=== PATIENT | male | born 1950 | race Two or more races ===

== ENCOUNTER 2021-01-21 11:30 | Inpatient (IN) | payer OTHER, MEDICAID ==
[~2021-01-21] VITALS: Ht 165.1 cm; Wt 56.9 kg
[2021-01-21 13:29] LABS: Basophils # (auto) 0 10 ^3/uL (0-0.2); Eosinophils # (auto) 0 10 ^3/uL (0-0.8); Hemoglobin 7.9 g/dL (13.5-17.5); Lymphocytes # (auto) 0.3 10 ^3/uL (0.4-5.4); Monocytes # (auto) 0.1 10 ^3/uL (0-1.3); Neutrophils % (auto) 90.1 % (37.0-80.0); Red Cell Distribution Width 17.3 % (11.8-14.3); White Blood Cell 4.8 10^3/uL (4.4-10.8)
[2021-01-21 13:33] LABS: Basophils % (auto) 0.3 % (0.0-2.0); Eosinophils % (auto) 0.1 % (0.0-7.0); Lymphocytes % (auto) 6.9 % (10.0-50.0); Mean Corpuscular Hemoglobin 29.1 pg (28.0-32.0); Mean Corpuscular Hgb Conc. 32.8 g/dL (32.0-36.0); Mean Corpuscular Volume 88.7 fL (80.0-100.0); Monocytes % (auto) 2.6 % (0.0-12.0); Neutrophils # (auto) 4.3 10 ^3/uL (1.6-8.6); Red Blood Cells 2.71 10^6/uL (4.5-5.90)
[2021-01-21 13:45] LABS: INR 1.07 (0.9-1.15)
[2021-01-21] MEDS ORDERED: SODIUM CHLORIDE 0.9% 1,000 ML IVB ONE (13:45)
[2021-01-21] MEDS ORDERED: MORPHINE SULFATE INJECTION 2 MG/ML SYRG IV ONE (13:45)
[2021-01-21] MEDS ORDERED: ONDANSETRON HCL 4 MG/2 ML VIAL IV ONE (13:45)
[2021-01-21] MEDS ORDERED: cefTRIAXone 1GM/50ML D5W 50 ML IV ONE (13:45)
[2021-01-21] MEDS ORDERED: VANCOMYCIN PER PHARMACY 0 MG IV SCH (13:45)
[2021-01-21 13:50] LABS: Albumin 1.8 g/dL (3.4-5.0); Calcium 8.4 mg/dL (8.5-10.1); Potassium 4.1 mmol/L (3.5-5.1)
[2021-01-21 13:54] LABS: BUN/Creatinine Ratio 19.7; Bilirubin, Total 0.3 mg/dL (0.2-1.0); Total Protein 6.3 g/dL (6.4-8.2)
[2021-01-21 14:53] LABS: Lactic Acid w/Reflex 2.4 mmol/L (0.4-2.0)
[2021-01-21 15:13] LABS: Magnesium 2.4 mg/dL (1.6-2.6)
[2021-01-21] MEDS: VANCOMYCIN 1GM/250ML 250 ML IV SCH (15:39)
[2021-01-21] MEDS ORDERED: NITROGLYCERIN 0.4 MG SL TAB SL PRN (16:45)
[2021-01-21] MEDS ORDERED: ONDANSETRON HCL 4 MG/2 ML VIAL IV PRN (16:45)
[2021-01-21] MEDS ORDERED: MORPHINE SULFATE INJECTION 2 MG/ML SYRG IV PRN ×2 (16:45)
[2021-01-21] MEDS: D5W/SOD CHL 0.45% 1,000 ML IV SCH (17:52)
[2021-01-21 22:05] VITALS: BP 103/62
[2021-01-22] VITALS (8 sets, daily range): BP systolic 91–123; BP diastolic 54–76
[2021-01-22 05:37] LABS: Basophils # (auto) 0 10 ^3/uL (0-0.2); Basophils % (auto) 0.5 % (0.0-2.0); Eosinophils # (auto) 0 10 ^3/uL (0-0.8); Hematocrit 19.7 % (41.0-53.0); Lymphocytes # (auto) 0.4 10 ^3/uL (0.4-5.4); Mean Corpuscular Hemoglobin 29.3 pg (28.0-32.0); Mean Corpuscular Hgb Conc. 33.1 g/dL (32.0-36.0); Monocytes # (auto) 0.2 10 ^3/uL (0-1.3); Neutrophils # (auto) 2.6 10 ^3/uL (1.6-8.6); White Blood Cell 3.3 10^3/uL (4.4-10.8)
[2021-01-22 05:43] LABS: Eosinophils % (auto) 0.9 % (0.0-7.0); Lymphocytes % (auto) 12.4 % (10.0-50.0); Mean Corpuscular Volume 88.4 fL (80.0-100.0); Monocytes % (auto) 5.8 % (0.0-12.0); Neutrophils % (auto) 80.4 % (37.0-80.0); Nucleated Red Blood Cells % 0.1 %; Red Blood Cells 2.23 10^6/uL (4.5-5.90); Red Cell Distribution Width 17.2 % (11.8-14.3)
[2021-01-22 05:55] LABS: Hemoglobin 6.5 g/dL (13.5-17.5)
[2021-01-22] MEDS: D5W/SOD CHL 0.45% 1,000 ML IV SCH ×2 (05:59→20:29)
[2021-01-22 06:04] LABS: BUN/Creatinine Ratio 21.1; Calcium 7.5 mg/dL (8.5-10.1)
[2021-01-22] MEDS ORDERED: FERR-20 PO (06:15)
[2021-01-22] MEDS ORDERED: EVER5TAB PO (06:15)
[2021-01-22] MEDS: VANCOMYCIN 1GM/250ML 250 ML IV SCH (09:14)
[2021-01-22] MEDS: PANTOPRAZOLE 40 MG/10 ML VIAL INJ IV SCH (09:15)
[2021-01-22] MEDS ORDERED: MEROPENEM 1GM IVPB 100 ML IV SCH (11:00)
[2021-01-22 13:17] LABS: % Iron Saturation 5.9 % (20-55)
[2021-01-22] MEDS ORDERED: IRON SUCROSE COMPLEX 200 MG in SODIUM CHL 0.9% 100 ML IV SCH (20:15)
[2021-01-22] MEDS: SODIUM FERR GLUC 62.5MG/5ML 125 MG in SODIUM CHL 0.9% 100 ML IV SCH (23:25)
[2021-01-23] VITALS (17 sets, daily range): BP systolic 95–113; BP diastolic 58–70
[2021-01-23] MEDS: MEROPENEM 1GM IVPB 100 ML IV SCH ×3 (01:02→16:22)
[2021-01-23] MEDS: VANCOMYCIN 1GM/250ML 250 ML IV SCH (03:22)
[2021-01-23 05:16] LABS: Basophils # (auto) 0 10 ^3/uL (0-0.2); Eosinophils # (auto) 0 10 ^3/uL (0-0.8); Lymphocytes # (auto) 0.5 10 ^3/uL (0.4-5.4); Monocytes # (auto) 0.1 10 ^3/uL (0-1.3); Neutrophils # (auto) 2.1 10 ^3/uL (1.6-8.6); White Blood Cell 2.8 10^3/uL (4.4-10.8)
[2021-01-23 05:22] LABS: Basophils % (auto) 1.1 % (0.0-2.0); Eosinophils % (auto) 1.4 % (0.0-7.0); Hematocrit 24.3 % (41.0-53.0); Hemoglobin 8.3 g/dL (13.5-17.5); Lymphocytes % (auto) 18.8 % (10.0-50.0); Mean Corpuscular Hemoglobin 29.9 pg (28.0-32.0); Mean Corpuscular Hgb Conc. 34.2 g/dL (32.0-36.0); Mean Corpuscular Volume 87.4 fL (80.0-100.0); Monocytes % (auto) 5.3 % (0.0-12.0); Neutrophils % (auto) 73.4 % (37.0-80.0); Red Blood Cells 2.78 10^6/uL (4.5-5.90); Red Cell Distribution Width 16.2 % (11.8-14.3)
[2021-01-23 05:38] LABS: Albumin 1.4 g/dL (3.4-5.0); Calcium 7.5 mg/dL (8.5-10.1); Potassium 3.7 mmol/L (3.5-5.1)
[2021-01-23 05:43] LABS: BUN/Creatinine Ratio 17.4; Bilirubin, Total 0.5 mg/dL (0.2-1.0); Total Protein 5.1 g/dL (6.4-8.2)
[2021-01-23 10:24] LABS: Urine Amorphous Crystal FEW /hpf (None Seen); Urine Bacteria FEW /hpf (None Seen); Urine Blood Negative /uL (Negative); Urine Mucus FEW (None Seen); Urine Specific Gravity 1.012 (1.001-1.035); Urine WBC 1 /hpf (0 - 3)
[2021-01-23] MEDS ORDERED: MIDAZOLAM HCL 2MG/2ML 2ml VIAL (1mg/ml) ONE (10:31)
[2021-01-23] MEDS ORDERED: fentaNYL CITRATE 100 MCG/2 ML VL ONE (10:31)
[2021-01-23] MEDS ORDERED: LIDOCAINE 2%HCL (LOCAL ANESTH.) INJ 20ML MDV ONE (11:02)
[2021-01-23] MEDS ORDERED: IRON SUCROSE COMPLEX 200 MG in SODIUM CHL 0.9% 100 ML IV SCH (12:00)
[2021-01-23] MEDS: PANTOPRAZOLE 40 MG/10 ML VIAL INJ IV SCH (13:13)
[2021-01-23] MEDS: SODIUM FERR GLUC 62.5MG/5ML 125 MG in SODIUM CHL 0.9% 100 ML IV SCH (13:13)
[2021-01-24] MEDS: MEROPENEM 1GM IVPB 100 ML IV SCH ×4 (00:14→23:38)
[2021-01-24 05:28] VITALS: BP 100/61
[2021-01-24 06:01] LABS: Basophils # (auto) 0 10 ^3/uL (0-0.2); Eosinophils # (auto) 0 10 ^3/uL (0-0.8); Hemoglobin 8.3 g/dL (13.5-17.5); Lymphocytes # (auto) 0.5 10 ^3/uL (0.4-5.4); Monocytes # (auto) 0.2 10 ^3/uL (0-1.3); Neutrophils # (auto) 2.3 10 ^3/uL (1.6-8.6); White Blood Cell 3.1 10^3/uL (4.4-10.8)
[2021-01-24 06:04] LABS: Basophils % (auto) 0.9 % (0.0-2.0); Eosinophils % (auto) 1.4 % (0.0-7.0); Hematocrit 24.7 % (41.0-53.0); Lymphocytes % (auto) 17.2 % (10.0-50.0); Mean Corpuscular Hemoglobin 29.2 pg (28.0-32.0); Mean Corpuscular Hgb Conc. 33.5 g/dL (32.0-36.0); Mean Corpuscular Volume 86.9 fL (80.0-100.0); Monocytes % (auto) 6.7 % (0.0-12.0); Neutrophils % (auto) 73.8 % (37.0-80.0); Red Blood Cells 2.84 10^6/uL (4.5-5.90); Red Cell Distribution Width 16.5 % (11.8-14.3)
[2021-01-24 06:21] LABS: BUN/Creatinine Ratio 18.9; Calcium 7.6 mg/dL (8.5-10.1); Potassium 3.8 mmol/L (3.5-5.1)
[2021-01-24] MEDS: PANTOPRAZOLE 40 MG/10 ML VIAL INJ IV SCH (08:55)
[2021-01-24 09:00] VITALS: BP_SYST 100; BP_DIAS 61; BP_DIAS 67
[2021-01-24] MEDS: SODIUM FERR GLUC 62.5MG/5ML 125 MG in SODIUM CHL 0.9% 100 ML IV SCH (11:48)
[2021-01-24 13:00] VITALS: BP 117/72
[2021-01-24] MEDS ORDERED: traMADol HCL 50 MG TAB PO PRN (16:15)
[2021-01-24 17:02] VITALS: BP 103/63
[2021-01-24 22:00] VITALS: BP 102/64
[2021-01-25 05:00] VITALS: BP 110/69
[2021-01-25 05:14] LABS: Basophils # (auto) 0 10 ^3/uL (0-0.2); Eosinophils # (auto) 0 10 ^3/uL (0-0.8); Hemoglobin 8.1 g/dL (13.5-17.5); Monocytes # (auto) 0.2 10 ^3/uL (0-1.3); Neutrophils # (auto) 2.3 10 ^3/uL (1.6-8.6); Nucleated Red Blood Cells % 0.1 %; White Blood Cell 3.1 10^3/uL (4.4-10.8)
[2021-01-25 05:16] LABS: Basophils % (auto) 0.9 % (0.0-2.0); Eosinophils % (auto) 0.9 % (0.0-7.0); Lymphocytes # (auto) 0.6 10 ^3/uL (0.4-5.4); Lymphocytes % (auto) 17.7 % (10.0-50.0); Mean Corpuscular Hemoglobin 29.2 pg (28.0-32.0); Mean Corpuscular Hgb Conc. 33.6 g/dL (32.0-36.0); Mean Corpuscular Volume 86.9 fL (80.0-100.0); Monocytes % (auto) 7.9 % (0.0-12.0); Neutrophils % (auto) 72.6 % (37.0-80.0); Red Blood Cells 2.76 10^6/uL (4.5-5.90); Red Cell Distribution Width 16.3 % (11.8-14.3)
[2021-01-25 05:27] LABS: BUN/Creatinine Ratio 17.7; Calcium 7.7 mg/dL (8.5-10.1); Potassium 3.8 mmol/L (3.5-5.1)
[2021-01-25] MEDS: MEROPENEM 1GM IVPB 100 ML IV SCH ×2 (07:32→16:21)
[2021-01-25 09:00] VITALS: BP 98/63
[2021-01-25] MEDS: SODIUM FERR GLUC 62.5MG/5ML 125 MG in SODIUM CHL 0.9% 100 ML IV SCH (12:41)
[2021-01-25 13:00] VITALS: BP 98/63
[2021-01-25 17:02] VITALS: BP 97/61
[2021-01-25 22:00] VITALS: BP 104/61
[2021-01-26] MEDS: MEROPENEM 1GM IVPB 100 ML IV SCH ×3 (00:01→17:00)
[2021-01-26 05:00] VITALS: BP 113/73
[2021-01-26 05:09] LABS: Basophils # (auto) 0 10 ^3/uL (0-0.2); Basophils % (auto) 1.2 % (0.0-2.0); Eosinophils # (auto) 0 10 ^3/uL (0-0.8); Eosinophils % (auto) 1.4 % (0.0-7.0); Hemoglobin 8.1 g/dL (13.5-17.5); Lymphocytes # (auto) 0.6 10 ^3/uL (0.4-5.4); Lymphocytes % (auto) 18.8 % (10.0-50.0); Mean Corpuscular Hemoglobin 29.7 pg (28.0-32.0); Mean Corpuscular Hgb Conc. 33.7 g/dL (32.0-36.0); Mean Corpuscular Volume 88.1 fL (80.0-100.0); Monocytes # (auto) 0.3 10 ^3/uL (0-1.3); Monocytes % (auto) 8.4 % (0.0-12.0); Neutrophils # (auto) 2.1 10 ^3/uL (1.6-8.6); Neutrophils % (auto) 70.2 % (37.0-80.0); Nucleated Red Blood Cells % 0.1 %; Red Blood Cells 2.73 10^6/uL (4.5-5.90); White Blood Cell 3.1 10^3/uL (4.4-10.8)
[2021-01-26 05:39] LABS: Potassium 3.9 mmol/L (3.5-5.1)
[2021-01-26 05:44] LABS: % Iron Saturation 25.8 % (20-55); Albumin 1.6 g/dL (3.4-5.0); BUN/Creatinine Ratio 19.8; Bilirubin, Total 0.3 mg/dL (0.2-1.0); Calcium 7.8 mg/dL (8.5-10.1); Total Protein 5.5 g/dL (6.4-8.2)
[2021-01-26 08:00] VITALS: BP 114/72
[2021-01-26 08:43] VITALS: BP 114/72
[2021-01-26] MEDS: SODIUM FERR GLUC 62.5MG/5ML 125 MG in SODIUM CHL 0.9% 100 ML IV SCH (12:00)
[2021-01-26 13:00] VITALS: BP 109/64
[2021-01-26 17:00] VITALS: BP 107/67
[2021-01-26] MEDS: FERROUS SULFATE 325mg EC TAB PO SCH (18:33)
[2021-01-26 22:20] VITALS: BP 102/63
[2021-01-27] MEDS: MEROPENEM 1GM IVPB 100 ML IV SCH (00:28)
[2021-01-27 04:59] VITALS: BP 116/72
[2021-01-27 08:00] VITALS: BP 100/63
[2021-01-27 08:50] VITALS: BP 100/63
[2021-01-27] MEDS ORDERED: FER325T PO (09:33)
[2021-01-27] MEDS: FERROUS SULFATE 325mg EC TAB PO SCH (09:42)
[2021-01-27] MEDS: ERTAPENEM SOD INJ 1 GM in SODIUM CHL 0.9% 50 ML IV SCH ×2 (09:45→10:30)
[2021-01-27 13:00] VITALS: BP 118/71
[2021-01-27 16:42] VITALS: BP 160/75
[2021-01-27 17:00] VITALS: BP 104/64
== END 2021-01-27 18:00 | disposition home health service (06) | DRG 689 ==
LOC: ER 11:30 → TELE 16:50 → TELE-CENTR 22:01 → CENTRAL 01-24 16:02
PROVIDERS: ADMIT Nurse Practitioner Acute Care; ATTEND Internal Medicine
PROC: 30233N1 Transfusion of Nonautologous Red Blood Cells into Peripheral Vein, Percutaneous Approach (ICD-10-PCS; principal; 2021-01-22)
PROC: 0W9H3ZZ Drainage of Retroperitoneum, Percutaneous Approach (ICD-10-PCS; 2021-01-23)
PROC: 05H933Z Insertion of Infusion Device into Right Brachial Vein, Percutaneous Approach (ICD-10-PCS; 2021-01-27)
DX: N15.1 Renal and perinephric abscess (principal); E43 Unspecified severe protein-calorie malnutrition; D61.818 Other pancytopenia; L02.415 Cutaneous abscess of right lower limb; C79.9 Secondary malignant neoplasm of unspecified site; N17.9 Acute kidney failure, unspecified; D50.8 Other iron deficiency anemias; R79.89 Other specified abnormal findings of blood chemistry; D64.9 Anemia, unspecified; N28.1 Cyst of kidney, acquired; N40.0 Benign prostatic hyperplasia without lower urinary tract symptoms; K57.30 Diverticulosis of large intestine without perforation or abscess without bleeding; Z85.528 Personal history of other malignant neoplasm of kidney; E78.5 Hyperlipidemia, unspecified; Z90.5 Acquired absence of kidney; Z68.20 Body mass index [BMI] 20.0-20.9, adult; K76.89 Other specified diseases of liver; Z20.822 Contact with and (suspected) exposure to COVID-19
CPT/HCPCS: 10022; 36415; 71045; 74150; 74176; 77012; 80048; 80053; 81001; 83540; 83550; 83605; 83615; 83690; 83735; 85025; 85045; 85379; 85610; 85730; 86850; 86880; 86900; 86901; 86920; 87040; 87070; 87077; 87186; 87205; 87426; 96365; 96375; 99291; C1729; C9113; G0378; J0696; J1335; J1756; J2185; J2250; J2405

== ENCOUNTER 2021-02-10 17:11 | Emergency (ER) | payer OTHER, MEDICAID ==
[~2021-02-10] VITALS: Ht 165.1 cm; Wt 68.0 kg
[~2021-02-10 17:11] MED LIST: EVER5TAB PO; FER325T PO; FERR-20 PO
[2021-02-10 18:37] LABS: Basophils # (auto) 0.1 10 ^3/uL (0-0.2); Eosinophils # (auto) 0.2 10 ^3/uL (0-0.8); Lymphocytes # (auto) 0.7 10 ^3/uL (0.4-5.4); Monocytes # (auto) 0.3 10 ^3/uL (0-1.3); Red Blood Cells 2.78 10^6/uL (4.5-5.90); White Blood Cell 4.6 10^3/uL (4.4-10.8)
[2021-02-10 18:40] LABS: Basophils % (auto) 2.1 % (0.0-2.0); Eosinophils % (auto) 4.4 % (0.0-7.0); Hematocrit 24.4 % (41.0-53.0); Hemoglobin 8.3 g/dL (13.5-17.5); Lymphocytes % (auto) 15.7 % (10.0-50.0); Mean Corpuscular Hgb Conc. 34.1 g/dL (32.0-36.0); Mean Corpuscular Volume 88.1 fL (80.0-100.0); Monocytes % (auto) 7.1 % (0.0-12.0); Neutrophils # (auto) 3.2 10 ^3/uL (1.6-8.6); Neutrophils % (auto) 70.7 % (37.0-80.0); Platelet Count (auto) 302 10^3/uL (140-450); Red Cell Distribution Width 16.1 % (11.8-14.3)
[2021-02-10 18:56] LABS: Albumin 2.4 g/dL (3.4-5.0); BUN/Creatinine Ratio 11.5; Calcium 8.1 mg/dL (8.5-10.1); Potassium 3.3 mmol/L (3.5-5.1)
[2021-02-10 18:59] LABS: Bilirubin, Total 0.2 mg/dL (0.2-1.0); Total Protein 7.1 g/dL (6.4-8.2)
[2021-02-10 22:00] VITALS: BP 114/74
== END 2021-02-10 22:14 | disposition home or self-care (01) ==
LOC: ER 17:11
DX: E87.6 Hypokalemia (principal); D64.9 Anemia, unspecified; G47.62 Sleep related leg cramps; F51.9 Sleep disorder not due to a substance or known physiological condition, unspecified
CPT/HCPCS: 36415; 80053; 85025; 85610; 86850; 86900; 86901; 93005

== ENCOUNTER 2023-07-01 12:47 | Inpatient (IN) | payer OTHER, MEDICAID ==
[~2023-07-01] VITALS: Ht 165.1 cm; Wt 62.0 kg
[~2023-07-01 12:47] MED LIST changes: -FERR-20 PO; +FERR325T24 PO
[2023-07-01 13:58] LABS: Urine Bacteria FEW /hpf (None Seen); Urine Blood 1+ /uL (Negative); Urine Clarity Clear (Clear); Urine Color Yellow (Yellow); Urine Mucus FEW (None Seen); Urine Protein, UAD 3+ (Negative); Urine Urobilinogen Normal (Negative); Urine WBC 1 /hpf (0 - 3); Urine pH 5.5 (5.0-8.0)
[2023-07-01 14:32] LABS: Basophils # (auto) 0 10 ^3/uL (0-0.2); Basophils % (auto) 1.1 % (0.0-2.0); Eosinophils # (auto) 0.1 10 ^3/uL (0-0.8); Eosinophils % (auto) 1.6 % (0.0-7.0); Hematocrit 30.3 % (41.0-53.0); Hemoglobin 10.2 g/dL (13.5-17.5); Lymphocytes # (auto) 0.5 10 ^3/uL (0.4-5.4); Lymphocytes % (auto) 11.6 % (10.0-50.0); Mean Corpuscular Hemoglobin 29.5 pg (28.0-32.0); Mean Corpuscular Hgb Conc. 33.5 g/dL (32.0-36.0); Mean Corpuscular Volume 88.1 fL (80.0-100.0); Monocytes # (auto) 0.4 10 ^3/uL (0-1.3); Monocytes % (auto) 8.9 % (0.0-12.0); Neutrophils # (auto) 3.3 10 ^3/uL (1.6-8.6); Neutrophils % (auto) 76.8 % (37.0-80.0); Red Blood Cells 3.44 10^6/uL (4.5-5.90); Red Cell Distribution Width 13.7 % (11.8-14.3); White Blood Cell 4.3 10^3/uL (4.4-10.8)
[2023-07-01 14:54] LABS: Alanine Aminotransferase 17 U/L (7-40); Albumin 4.3 g/dL (3.2-4.8); Alkaline Phosphatase 148 U/L (46-116); Anion Gap 8 (5-15); Aspartate Aminotransferase 28 U/L (13-40); BUN/Creatinine Ratio 13.5 (10.0-20.0); Blood Urea Nitrogen 26 mg/dL (9-23); Calcium 8.8 mg/dL (8.7-10.4); Carbon Dioxide 21 mmol/L (20-30); Chloride 112 mmol/L (98-107); Glucose 92 mg/dL (74-106); Lipase 70 U/L (12-53); Potassium 4.8 mmol/L (3.5-5.1); Sodium 141 mmol/L (136-145)
[2023-07-01 14:55] LABS: Bilirubin, Total 0.3 mg/dL (0.2-1.0); Total Protein 7.3 g/dL (5.7-8.2)
[2023-07-01] MEDS ORDERED: DOCUSATE SOD 100 MG CAP PO PRN (16:30)
[2023-07-01] MEDS ORDERED: ONDANSETRON HCL 4 MG/2 ML VIAL IV PRN (16:30)
[2023-07-01] MEDS ORDERED: MORPHINE SULFATE INJ 2 MG/ml SYRG IV PRN (16:30)
[2023-07-01 23:36] LABS: Creatinine, Urine 206.17 mg/dL (30.0-125.0)
[2023-07-02] MEDS: TAMSULOSIN HYDROCHLORIDE 0.4 MG CAP PO SCH ×2 (01:17→18:15)
[2023-07-02] MEDS: FERROUS SULFATE 325mg EC TAB PO SCH ×3 (01:17→18:14)
[2023-07-02] MEDS: SODIUM CHLORIDE 0.9% 1,000 ML IV SCH ×4 (01:29→16:07)
[2023-07-02] MEDS: cefTRIAXone 1GM/50ML D5W 50 ML IV SCH ×2 (02:00→08:11)
[2023-07-02 07:09] LABS: Basophils # (auto) 0 10 ^3/uL (0-0.2); Basophils % (auto) 0.9 % (0.0-2.0); Eosinophils # (auto) 0.1 10 ^3/uL (0-0.8); Eosinophils % (auto) 3.4 % (0.0-7.0); Hematocrit 30.1 % (41.0-53.0); Hemoglobin 10.1 g/dL (13.5-17.5); Lymphocytes # (auto) 0.6 10 ^3/uL (0.4-5.4); Lymphocytes % (auto) 16.7 % (10.0-50.0); Mean Corpuscular Hemoglobin 29.5 pg (28.0-32.0); Mean Corpuscular Hgb Conc. 33.6 g/dL (32.0-36.0); Mean Corpuscular Volume 87.8 fL (80.0-100.0); Monocytes # (auto) 0.3 10 ^3/uL (0-1.3); Monocytes % (auto) 9.5 % (0.0-12.0); Neutrophils # (auto) 2.4 10 ^3/uL (1.6-8.6); Neutrophils % (auto) 69.5 % (37.0-80.0); Nucleated Red Blood Cells % 0.1 %; Red Blood Cells 3.43 10^6/uL (4.5-5.90); Red Cell Distribution Width 13.9 % (11.8-14.3); White Blood Cell 3.4 10^3/uL (4.4-10.8)
[2023-07-02 07:17] LABS: Alanine Aminotransferase 16 U/L (7-40); Albumin 4.4 g/dL (3.2-4.8); Alkaline Phosphatase 150 U/L (46-116); Anion Gap 9 (5-15); Aspartate Aminotransferase 28 U/L (13-40); BUN/Creatinine Ratio 16.5 (10.0-20.0); Blood Urea Nitrogen 26 mg/dL (9-23); Carbon Dioxide 20 mmol/L (20-30); Chloride 110 mmol/L (98-107); Glucose 81 mg/dL (74-106); Lipase 72 U/L (12-53); Potassium 4.4 mmol/L (3.5-5.1); Sodium 139 mmol/L (136-145)
[2023-07-02 07:18] LABS: Bilirubin, Total 0.4 mg/dL (0.2-1.0); Total Protein 7.8 g/dL (5.7-8.2)
[2023-07-02 07:36] VITALS: PULSE 96; RESP 18; O2SAT 99
[2023-07-02] MEDS: EVEROLIMUS 10 MG PO SCH (10:00)
[2023-07-02 13:00] VITALS: BP 139/80; PULSE 95; RESP 19; TEMP 97.3; O2SAT 99
[2023-07-02 17:16] VITALS: BP 125/86; PULSE 91; RESP 18; TEMP 97.7; O2SAT 100
[2023-07-02 20:00] VITALS: RESP 18; O2SAT 96
[2023-07-02 22:00] VITALS: BP 131/74; PULSE 100; RESP 17; TEMP 98; O2SAT 98
[2023-07-03] MEDS: SODIUM CHLORIDE 0.9% 1,000 ML IV SCH ×2 (02:36→08:20)
[2023-07-03 05:00] VITALS: BP 140/74; PULSE 101; RESP 18; TEMP 98.2; O2SAT 98
[2023-07-03 06:06] LABS: Basophils # (auto) 0 10 ^3/uL (0-0.2); Basophils % (auto) 0.9 % (0.0-2.0); Eosinophils # (auto) 0.1 10 ^3/uL (0-0.8); Eosinophils % (auto) 2.6 % (0.0-7.0); Hematocrit 28.3 % (41.0-53.0); Hemoglobin 9.4 g/dL (13.5-17.5); Lymphocytes % (auto) 25.6 % (10.0-50.0); Mean Corpuscular Hemoglobin 29.5 pg (28.0-32.0); Mean Corpuscular Hgb Conc. 33.1 g/dL (32.0-36.0); Mean Corpuscular Volume 89.2 fL (80.0-100.0); Monocytes # (auto) 0.3 10 ^3/uL (0-1.3); Monocytes % (auto) 8.3 % (0.0-12.0); Neutrophils # (auto) 2.4 10 ^3/uL (1.6-8.6); Neutrophils % (auto) 62.6 % (37.0-80.0); Nucleated Red Blood Cells % 0.1 %; Red Blood Cells 3.18 10^6/uL (4.5-5.90); Red Cell Distribution Width 13.9 % (11.8-14.3); White Blood Cell 3.8 10^3/uL (4.4-10.8)
[2023-07-03 06:28] LABS: Anion Gap 14 (5-15); Calcium 8.4 mg/dL (8.7-10.4); Carbon Dioxide 14 mmol/L (20-30); Chloride 114 mmol/L (98-107); Potassium 4.3 mmol/L (3.5-5.1); Sodium 142 mmol/L (136-145)
[2023-07-03 06:33] LABS: Uric Acid 6.3 mg/dL (3.7-9.2)
[2023-07-03 06:34] LABS: BUN/Creatinine Ratio 16.4 (10.0-20.0); Blood Urea Nitrogen 23 mg/dL (9-23); Glucose 57 mg/dL (74-106)
[2023-07-03 06:37] LABS: Phosphorus 3.4 mg/dL (2.4-5.1)
[2023-07-03 08:05] VITALS: BP 127/70; PULSE 95; RESP 18; TEMP 97.5; O2SAT 99
[2023-07-03] MEDS: cefTRIAXone 1GM/50ML D5W 50 ML IV SCH (08:20)
[2023-07-03] MEDS: FERROUS SULFATE 325mg EC TAB PO SCH (08:20)
[2023-07-03 09:00] VITALS: BP 127/70; PULSE 95; RESP 18; TEMP 97.5; O2SAT 99
[2023-07-03] MEDS: EVEROLIMUS 10 MG PO SCH (09:42)
[2023-07-03] MEDS ORDERED: CIPR-173 PO (10:36)
[2023-07-03 13:00] VITALS: BP 133/71; PULSE 89; RESP 18; TEMP 97.5; O2SAT 100
[2023-07-04 09:21] LABS: Hepatitis B Surface Antigen Negative (Negative)
[2023-07-04 09:42] LABS: Hepatitis C Antibody Negative (Negative)
[2023-07-05 22:07] LABS: Chlamydia Trachomatis, NAA Negative (Negative); Neisseria gonorrhoeae, NAA Negative (Negative)
== END 2023-07-03 15:55 | disposition home or self-care (01) | DRG 689 ==
LOC: ER 12:47 → OVERFLOW 16:33 → EAST 07-02 11:14
PROVIDERS: ADMIT Nurse Practitioner Family; ATTEND Nurse Practitioner Family
DX: N30.00 Acute cystitis without hematuria (principal); N17.0 Acute kidney failure with tubular necrosis; N40.0 Benign prostatic hyperplasia without lower urinary tract symptoms; K57.30 Diverticulosis of large intestine without perforation or abscess without bleeding; D50.0 Iron deficiency anemia secondary to blood loss (chronic); R80.9 Proteinuria, unspecified; N18.32 Chronic kidney disease, stage 3b; K62.89 Other specified diseases of anus and rectum; E78.5 Hyperlipidemia, unspecified; Z79.899 Other long term (current) drug therapy; Z90.5 Acquired absence of kidney; Z85.528 Personal history of other malignant neoplasm of kidney; Z90.79 Acquired absence of other genital organ(s)
CPT/HCPCS: 36415; 74176; 76775; 80048; 80053; 81001; 82306; 82570; 83690; 83735; 84100; 84300; 84550; 85025; 86803; 87340; G0378; J0696